=== PATIENT | male | born 1970 | race Caucasian/White ===

== ENCOUNTER 2019-01-09 10:36 | Inpatient (IN) | payer SELFPAY ==
--- NOTE | 2019-01-09 10:51 | ER Document Report ---
ED Medical Screen (RME) - General Chief Complaint: Abdominal Pain Stated Complaint: SEVERE ABDOMINAL PAIN Time Seen by Provider: 01/09/19 10:45 Mode of Arrival: Carried Information source: Patient Notes: 48-year-old male was in the ED for complaint of left lower quadrant abdominal pain. He states he woke up with some severe lower abdominal pain. He states he then tried to go to the bathroom realized he was very constipated. He took a Dulcolax on he states he still had some pain on Thursday but he was started to go to the bathroom. States this morning he thought he was a little more stool that he needed to pass and went to strain to pass passed some stool and then had a severe burning in the left lower quadrant. He has not had any nausea vomiting or any diarrhea. He states he does not smoke he quit he does drinks couple beer and a shot or 2 a night and uses marijuana. 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 I have greeted and performed a rapid initial assessment of this patient. A comprehensive ED assessment and evaluation of the patient, analysis of test results and completion of medical decision making process will be conducted by an additional ED providers. Physical Exam - Vital signs Vitals: Temp Pulse Resp BP Pulse Ox 97.4 F 77 20 166/97 H 100 01/09/19 10:40 01/09/19 10:40 01/09/19 10:40 01/09/19 10:40 01/09/19 10:40 Course - Vital Signs Vital signs: Temp Pulse Resp BP Pulse Ox 97.4 F 77 20 166/97 H 100 01/09/19 10:40 01/09/19 10:40 01/09/19 10:40 01/09/19 10:40 01/09/19 10:40
[2019-01-09 12:22] LABS: ABSOLUTE BASOPHILS # (AUTO) 0.1 10^3/uL (0.0-0.2); ABSOLUTE EOSINOPHILS # (AUTO) 0.1 10^3/uL (0.0-0.6); ABSOLUTE LYMPHOCYTES (AUTO) 1.1 10^3/uL (0.5-4.7); ABSOLUTE MONOCYTES (AUTO) 0.5 10^3/uL (0.1-1.4); ABSOLUTE NEUT (AUTO) 4.8 10^3/uL (1.7-8.2); BASOPHILS % (AUTO) 0.8 % (0-2); EOSINOPHILS % (AUTO) 1.1 % (0-6); HEMOGLOBIN 19.1 g/dL (13.5-17.0); LYMPHOCYTES % (AUTO) 17.1 % (13-45); MEAN CORPUSCULAR HEMOGLOBIN 34.1 pg (27.0-33.4); MEAN CORPUSCULAR HGB CONC 34.1 g/dL (32.0-36.0); MEAN CORPUSCULAR VOLUME 100 fl (80-97); MONOCYTES % (AUTO) 7.7 % (3-13); PLATELET COUNT 225 10^3/uL (150-450); RED BLOOD COUNT 5.58 10^6/uL (4.35-5.55); RED CELL DISTRIBUTION WIDTH 13.7 % (11.5-14.0); SEGMENTED NEUTROPHILS % (AUTO) 73.3 % (42-78); TOTAL CELLS COUNTED % (AUTO) 100 %; WHITE BLOOD COUNT 6.5 10^3/uL (4.0-10.5)
[2019-01-09 12:25] LABS: HEMATOCRIT 55.9 % (37.9-51.0)
[2019-01-09] MEDS ORDERED: KETOROLAC TROMETHAMINE INJ/PF 30 MG/1 ML SDV IV ONE (12:42)
--- NOTE | 2019-01-09 12:45 | ER Document Report ---
ED General - General Chief Complaint: Abdominal Pain Stated Complaint: SEVERE ABDOMINAL PAIN Time Seen by Provider: 01/09/19 10:45 Mode of Arrival: Carried Information source: Patient Notes: 48-year-old male presents emergency department with complaints of left lower quad abdominal pain. Patient reports that he is had an uncomfortable feeling of his left lower quad since . He is been drinking lots of water but had not ate anything until last night. He reports he ate a small sub-with some chips. He reports the pain this morning became severe. He was able to have a bowel movement this morning but reports he is constipated he has taken Dulcolax for that. Reports he was having a bowel movement and pushing and he felt a pop and then felt severe pain in his left lower quad. Denies fever nausea vomiting. Reports he has constipation every now and then. TRAVEL OUTSIDE OF THE [place] IN LAST 30 DAYS: No - HPI Onset: Other Onset/Duration: Persistent Quality of pain: Achy, Sharp Severity: Severe Associated symptoms: None Exacerbated by: Movement Relieved by: Denies Similar symptoms previously: No Recently seen / treated by doctor: No - Related Data Allergies/Adverse Reactions: No Known Allergies Allergy (Verified 01/09/19 10:45) Past Medical History - General Information source: Patient - Social History Smoking Status: Former Smoker Chew tobacco use (# tins/day): No Frequency of alcohol use: Heavy Drug Abuse: Marijuana Occupation: [employer] Family History: None Patient has suicidal ideation: No Patient has homicidal ideation: No - Medical History Medical History: Negative Surgical Hx: Negative Review of Systems - Review of Systems Notes: Review HPI for review of systems., All other systems negative Physical Exam - Vital signs Vitals: Temp Pulse Resp BP Pulse Ox 97.4 F 77 20 166/97 H 100 01/09/19 10:40 01/09/19 10:40 01/09/19 10:40 01/09/19 10:40 01/09/19 10:40 - Notes Notes: PHYSICAL EXAMINATION: GENERAL: Nontoxic looking, looks like he is uncomfortable HEAD: Atraumatic, normocephalic. EYES: Pupils equal round and reactive to light, extraocular movements intact, sclera anicteric, conjunctiva are normal. ENT: nares patent, oropharynx clear without exudates. Moist mucous membranes. NECK: Normal range of motion, supple without lymphadenopathy LUNGS: CTAB and equal. No wheezes rales or rhonchi. HEART: Regular rate and rhythm without murmurs ABDOMEN: Soft,LLQ TTP, Hypoactive BS. EXTREMITIES: Normal range of motion, no pitting edema. NEUROLOGICAL: Cranial nerves grossly intact. Normal sensory/motor exams. PSYCH: Normal mood, normal affect. SKIN: Warm, Dry, normal turgor, no rashes or lesions noted Course - Re-evaluation Re-evalutation: 01/09/19 13:55 48-year-old male presents to emergency department with complaints of left lower quad severe abdominal pain that started this morning. Reports the pain is been on and off since . He was only drinking water then he felt better Thursday night ate some chips and sub-. Reports he woke up this morning in severe pain. Reports he is has been having bowel movements although they have been hard stools. Patient reports he took some stool softener. 01/09/19 14:12 Dr. Good consulted 1352 regarding patient's perforated diverticulitis. He was in the emergency department at 1410. Assessing patient. - Vital Signs Vital signs: Temp Pulse Resp BP Pulse Ox 97.9 F 84 16 145/75 H 100 01/09/19 15:00 01/09/19 15:00 01/09/19 15:00 01/09/19 15:00 01/09/19 15:00 - Laboratory Result Diagrams: 01/09/19 11:10 01/09/19 11:10 Laboratory results interpreted by me: 01/09/19 01/09/19 01/09/19 11:10 11:10 14:01 RBC 5.58 H Hgb 19.1 H Hct 55.9 H MCV 100 H MCH 34.1 H Sodium 136.8 L Glucose 145 H Urine Ketones TRACE H Urine Blood SMALL H - Diagnostic Test Radiology reviewed: Image reviewed, Reports reviewed - Consults dr good Time consulted: 13:55 Reason for consultation: 01/09/19 14:12 PERFORATED DIVERTICULITIS Consulted provider: will come to ER Discharge - Discharge Clinical Impression: Acute sigmoid diverticulitis with perfor Condition: Stable Disposition: ADMITTED INPATIENT Admitting Provider: Surgicalist Unit Admitted: Medical Floor
[2019-01-09 12:56] LABS: ALBUMIN 4.2 g/dL (3.5-5.0); ALKALINE PHOSPHATASE 72 U/L (38-126); ANION GAP 11 (5-19); ASPARTATE AMINO TRANSFERASE 42 U/L (17-59); BILIRUBIN,DIRECT 0.3 mg/dL (0.0-0.4); BILIRUBIN,TOTAL 0.7 mg/dL (0.2-1.3); BLOOD UREA NITROGEN 13 mg/dL (7-20); CALCIUM 9.7 mg/dL (8.4-10.2); CARBON DIOXIDE 25 mmol/L (22-30); CHLORIDE 101 mmol/L (98-107); GLUCOSE 145 mg/dL (75-110); POTASSIUM 4.1 mmol/L (3.6-5.0); TOTAL PROTEIN 7.4 g/dL (6.3-8.2)
[2019-01-09] MEDS ORDERED: NORMAL SALINE 1000 ML 1,000 ML IV ONE (13:22)
--- NOTE | 2019-01-09 13:34 | RADIOLOGY REPORT (SQ) ---
EXAM DESCRIPTION: CT ABD/PELVIS WITH IV ONLY COMPLETED DATE/TIME: 01/09/2019 1:18 pm REASON FOR STUDY: llq severe abdominal pain COMPARISON: None. TECHNIQUE: CT scan of the abdomen and pelvis performed using helical scanning technique with dynamic intravenous contrast injection. No oral contrast. Images reviewed with lung, soft tissue, and bone windows. Reconstructed coronal and sagittal MPR images reviewed. Delayed images for evaluation of the urinary system also acquired. All images stored on PACS. All CT scanners at this facility use dose modulation, iterative reconstruction, and/or weight based d osing when appropriate to reduce radiation dose to as low as reasonably achievable (ALARA). [facility]: Dose Right [facility]: CareDose [facility]: Dose Right [facility]: Teradose 4D [facility]: Biodesy CONTRAST TYPE AND DOSE: contrast/concentration: Isovue 350.00 mg/ml; Total Contrast Delivered: 86.0 ml; Total Saline Delivered: 63.0 ml RENAL FUNCTION: None required. The patient is less than 50 years old. RADIATION DOSE: CT Rad equipment meets quality standard of care and radiation dose reduction techniq ues were employed. CTDIvol: 6.1 - 8.4 mGy. DLP: 755 mGy-cm.. LIMITATIONS: None. FINDINGS: LOWER CHEST: No significant findings. No nodules or infiltrates. LIVER: Normal size. No masses. No dilated ducts. SPLEEN: Normal size. No focal lesions. PANCREAS: No masses. No significant calcifications. No adjacent inflammation or peripancreatic fluid collections. Pancreatic duct not dilated. GALLBLADDER: No identified stones by CT criteria. No inflammatory changes to suggest cholecystitis. ADRENAL GLANDS: No significant masses or asymmetry. RIGHT KIDNEY AND URETER: No solid masses. No significant calcifications. No hydronephrosis or hyd roureter. LEFT KIDNEY AND URETER: No solid masses. No significant calcifications. No hydronephrosis or hydr oureter. AORTA AND VESSELS: No aneurysm. No dissection. Renal arteries, SMA, celiac without stenosis. RETROPERITONEUM: No retroperitoneal adenopathy, hemorrhage or masses. BOWEL AND PERITONEAL CAVITY: Mesenteric inflammation proximal sigmoid colon. There are several extra luminal bubbles gas. No organized gas fluid collection. No ascites or free air. APPENDIX: Normal. PELVIS: No mass. No free fluid. Normal bladder. ABDOMINAL WALL: No masses. No hernias. BONES: No significant or acute findings. OTHER: No other significant finding. IMPRESSION: Perforated diverticulitis. TECHNICAL DOCUMENTATION: JOB ID: [id number] Quality ID # [id number]: Final reports with documentation of one or more dose reduction techniques (e.g., Au tomated exposure control, adjustment of the mA and/or kV according to patient size, use of iterative reconstruction technique) 2010 [employer]- All Rights Reserved Reading location - IP/workstation name: [email or web address] [id number]
[2019-01-09] MEDS ORDERED: PIPERACILLIN/TAZOBACTAM 3.375 GM VIAL IV ONE ×2 (14:00→23:49)
[2019-01-09 14:24] LABS: APPEARANCE,URINE CLEAR; BILIRUBIN,URINE NEGATIVE (NEGATIVE); COLOR,URINE YELLOW; GLUCOSE, URINE NEGATIVE (NEGATIVE); KETONES,URINE TRACE mg/dL (NEGATIVE); PROTEIN,URINE NEGATIVE (NEGATIVE); URINE SPECIFIC GRAVITY 1.044; UROBILINOGEN,URINE NEGATIVE mg/dL (<2.0)
--- NOTE | 2019-01-09 14:29 | PDOC H&P ---
History of Present Illness Admission Date/PCP: 01/09/19 Patient complains of: abdominal pains History of Present Illness: STEFAN DAO is a 48 year old male started c/o LLQ pains 3 days ago associated with constipation. He took a Dulcolax tablets later that night with the small amount of bowel movement. The pain is persisted and this morning complain of more severe pains with burning sensations with nausea. Has been complaining of off and on fever and chills for the past 3days but is still able to work until 2 days ago. Social History Smoking Status: Former Smoker Electronic Cigarette use?: No Drugs: Marijuana Family History Parental Family History Reviewed: Yes Children Family History Reviewed: No Sibling(s) Family History Reviewed.: No Medication/Allergy Allergies/Adverse Reactions: No Known Allergies Allergy (Verified 01/09/19 10:45) Review of Systems Constitutional: PRESENT: as per HPI Cardiovascular: PRESENT: other - No chest pains nor cough Gastrointestinal: PRESENT: abdominal pain, constipation, nausea Psychiatric: PRESENT: other - Claims he is preparing to be transgender Physical Exam Vital Signs: Temp Pulse Resp BP Pulse Ox 97.4 F 77 20 166/97 H 100 01/09/19 10:40 01/09/19 10:40 01/09/19 10:40 01/09/19 10:40 01/09/19 10:40 Intake & Output 01/08/19 01/09/19 01/10/19 06:59 06:59 06:59 Weight 75.7 kg General appearance: PRESENT: mild distress Head exam: PRESENT: atraumatic Eye exam: PRESENT: conjunctiva pink Mouth exam: PRESENT: moist Neck exam: PRESENT: full ROM Respiratory exam: PRESENT: clear to auscultation derrick Cardiovascular exam: PRESENT: RRR Pulses: PRESENT: normal radial pulses Vascular exam: PRESENT: normal capillary refill GI/Abdominal exam: PRESENT: soft, tenderness - Left lower quadrant Rectal exam: PRESENT: deferred Musculoskeletal exam: PRESENT: full ROM Neurological exam: PRESENT: alert, oriented to person, oriented to place, oriented to time, oriented to situation Psychiatric exam: PRESENT: appropriate affect Skin exam: PRESENT: normal color, warm Results Laboratory Results: 01/09/19 11:10 01/09/19 11:10 01/09/19 01/09/19 11:10 11:10 WBC 6.5 RBC 5.58 H Hgb 19.1 H Hct 55.9 H MCV 100 H MCH 34.1 H MCHC 34.1 RDW 13.7 Plt Count 225 Seg Neutrophils % 73.3 Sodium 136.8 L Potassium 4.1 Chloride 101 Carbon Dioxide 25 Anion Gap 11 BUN 13 Creatinine 0.89 Est GFR ( Amer) > 60 Glucose 145 H Calcium 9.7 Total Bilirubin 0.7 AST 42 Alkaline Phosphatase 72 Total Protein 7.4 Albumin 4.2 Impressions: Abdomen/Pelvis CT 01/09/19 12:42 IMPRESSION: Perforated diverticulitis. Assessment & Plan - Diagnosis (1) Acute sigmoid diverticulitis with perfor Is this a current diagnosis for this admission?: Yes - Time Time Spent: 30 to 50 Minutes - Inpatient Certification Medical Necessity: Need For IV Fluids, Need for Pain Control, Need for IV Antibiotics - Plan Summary Plan Summary: This is a 48-year-old male with complaints of left lower quadrant pains with constipation and. Nausea and off and on fever started about 3 days ago. Took some laxatives 3 days ago with some results. This morning pains became worse this time with associated burning sensation along the left lower quadrant and pelvis areas. His abdomen is soft with tenderness on the left lower quadrant on deep palpation. No rebound. His white count is normal. CT scan of the abdomen showed a sigmoid diverticulitis with perforation but no free air. Plans: Keep n.p.o. and start hydration Start IV antibiotics Patient does not need any emergency operation at this time but will monitor him closely. We will repeat the blood work in the morning.
[2019-01-09] MEDS ORDERED: PIPERACILLIN/TAZOBACTAM 3.375 GM VIAL IV SCH (14:45)
[2019-01-09] MEDS ORDERED: INFLUENZA QUAD (6MOS+) 2019-20 VAC 0.5 ML SYR IM ONE (16:00)
[2019-01-09] MEDS: ENOXAPARIN SODIUM INJ 30 MG/0.3 ML DISP.SYRIN SUBCUT SCH (16:25)
[2019-01-09] MEDS ORDERED: KETOROLAC TROMETHAMINE INJ/PF 30 MG/1 ML SDV IV PRN (22:01)
[2019-01-09] MEDS: DEXTROSE 5%-LACTATED RINGERS 1,000 ML IV PRN (23:13)
[2019-01-09] MEDS ORDERED: PIPERACILLIN/TAZOBACTAM 3.375 GM VIAL IV PRN (23:32)
[2019-01-10] MEDS: PIPERACILLIN SODIUM/TAZOBACTAM 3.375 GM in NORMAL SALINE 100 ML IV SCH ×6 (05:34→23:00)
[2019-01-10 06:09] LABS: ABSOLUTE LYMPHOCYTES (AUTO) 0.9 10^3/uL (0.5-4.7); ABSOLUTE MONOCYTES (AUTO) 1.4 10^3/uL (0.1-1.4); BASOPHILS % (AUTO) 0.1 % (0-2); EOSINOPHILS % (AUTO) 0.1 % (0-6); HEMATOCRIT 48.3 % (37.9-51.0); LYMPHOCYTES % (AUTO) 7.3 % (13-45); MEAN CORPUSCULAR HEMOGLOBIN 34.3 pg (27.0-33.4); MEAN CORPUSCULAR HGB CONC 34.6 g/dL (32.0-36.0); MEAN CORPUSCULAR VOLUME 99 fl (80-97); MONOCYTES % (AUTO) 11.4 % (3-13); PLATELET COUNT 207 10^3/uL (150-450); RED BLOOD COUNT 4.88 10^6/uL (4.35-5.55); RED CELL DISTRIBUTION WIDTH 13.6 % (11.5-14.0); SEGMENTED NEUTROPHILS % (AUTO) 81.1 % (42-78); TOTAL CELLS COUNTED % (AUTO) 100 %; WHITE BLOOD COUNT 12.4 10^3/uL (4.0-10.5)
[2019-01-10] MEDS: DEXTROSE 5%-LACTATED RINGERS 1,000 ML IV PRN ×3 (06:12→20:22)
[2019-01-10 06:16] LABS: HEMOGLOBIN 16.7 g/dL (13.5-17.0)
[2019-01-10 06:26] LABS: ALBUMIN 3.2 g/dL (3.5-5.0); ALKALINE PHOSPHATASE 50 U/L (38-126); ANION GAP 10 (5-19); ASPARTATE AMINO TRANSFERASE 20 U/L (17-59); BILIRUBIN,DIRECT 0.2 mg/dL (0.0-0.4); BILIRUBIN,TOTAL 1.2 mg/dL (0.2-1.3); BLOOD UREA NITROGEN 7 mg/dL (7-20); CALCIUM 8.9 mg/dL (8.4-10.2); CARBON DIOXIDE 22 mmol/L (22-30); CHLORIDE 106 mmol/L (98-107); GLUCOSE 130 mg/dL (75-110); POTASSIUM 3.6 mmol/L (3.6-5.0); TOTAL PROTEIN 5.8 g/dL (6.3-8.2)
[2019-01-10] MEDS: ENOXAPARIN SODIUM INJ 30 MG/0.3 ML DISP.SYRIN SUBCUT SCH (09:20)
[2019-01-10] MEDS ORDERED: KETOROLAC TROMETHAMINE 10 MG TABLET PO PRN (10:10)
--- NOTE | 2019-01-10 10:10 | PDOC PROGRESS REPORT ---
Subjective Progress Note for:: 01/10/19 Subjective:: Patient says he feels better, passing his water; having some pelvic pain with straining. Reason For Visit: ACUTE SIGMOD DIVERTICULITIS WITH PERFORATION Physical Exam Vital Signs: Temp Pulse Resp BP Pulse Ox 98.6 F 84 20 138/73 H 96 01/10/19 00:15 01/10/19 07:44 01/10/19 07:44 01/10/19 07:44 01/10/19 07:44 Intake & Output 01/09/19 01/10/19 01/11/19 06:59 06:59 06:59 Intake Total 2200 Output Total 400 Balance 1800 Weight 80.2 kg General appearance: PRESENT: no acute distress, other - Patient hiking in the hallways with IV pole GI/Abdominal exam: PRESENT: other - Abdomen is soft minimally tender left lower quadrant. No guarding no peritoneal signs. Minimal distention. Results Laboratory Results: 01/10/19 05:28 01/10/19 05:28 01/09/19 01/09/19 01/09/19 11:10 11:10 14:01 WBC 6.5 RBC 5.58 H Hgb 19.1 H Hct 55.9 H MCV 100 H MCH 34.1 H MCHC 34.1 RDW 13.7 Plt Count 225 Seg Neutrophils % 73.3 Sodium 136.8 L Potassium 4.1 Chloride 101 Carbon Dioxide 25 Anion Gap 11 BUN 13 Creatinine 0.89 Est GFR ( Amer) > 60 Glucose 145 H Calcium 9.7 Total Bilirubin 0.7 AST 42 Alkaline Phosphatase 72 Total Protein 7.4 Albumin 4.2 Urine Color YELLOW Urine Appearance CLEAR Urine pH 5.0 Ur Specific [place] 1.044 Urine Protein NEGATIVE Urine Glucose (UA) NEGATIVE Urine Ketones TRACE H Urine Blood SMALL H Urine RBC (Auto) 1 01/10/19 01/10/19 05:28 05:28 WBC 12.4 H RBC 4.88 Hgb 16.7 D Hct 48.3 MCV 99 H MCH 34.3 H MCHC 34.6 RDW 13.6 Plt Count 207 Seg Neutrophils % 81.1 H Sodium 137.9 Potassium 3.6 Chloride 106 Carbon Dioxide 22 Anion Gap 10 BUN 7 Creatinine 0.81 Est GFR ( Amer) > 60 Glucose 130 H Calcium 8.9 Total Bilirubin 1.2 AST 20 Alkaline Phosphatase 50 Total Protein 5.8 L Albumin 3.2 L Urine Color Urine Appearance Urine pH Ur Specific [place] Urine Protein Urine Glucose (UA) Urine Ketones Urine Blood Urine RBC (Auto) Impressions: Abdomen/Pelvis CT 01/09/19 12:42 IMPRESSION: Perforated diverticulitis. Assessment & Plan - Diagnosis (1) Acute sigmoid diverticulitis with perfor Is this a current diagnosis for this admission?: Yes Plan: Impression: Hospital day 2 for patient with contained microperforation pericolonic stranding of the sigmoid colon secondary to diverticular disease, medically improved with IV antibiotics and bowel rest. No indication for surgical intervention today Recommendations: 1. Continue intravenous antibiotics 2. We will start clear liquids 3. We will start patient on Colace 4. We will wean off narcotics and utilize nonnarcotic analgesia - Time Time Spent with patient: Less than 15 minutes
[2019-01-10] MEDS: DOCUSATE SODIUM 100 MG CAPSULE PO SCH (18:32)
[2019-01-11] MEDS: DEXTROSE 5%-LACTATED RINGERS 1,000 ML IV PRN ×2 (03:48→11:00)
[2019-01-11] MEDS: PIPERACILLIN SODIUM/TAZOBACTAM 3.375 GM in NORMAL SALINE 100 ML IV SCH ×2 (05:56→12:14)
[2019-01-11] MEDS: DOCUSATE SODIUM 100 MG CAPSULE PO SCH (09:38)
[2019-01-11] MEDS: ENOXAPARIN SODIUM INJ 30 MG/0.3 ML DISP.SYRIN SUBCUT SCH (10:56)
--- NOTE | 2019-01-11 15:21 | PDOC DISCHARGE SUMMARY ---
General - Admit/Disc Date/PCP Admission Date/Primary Care Provider: 01/09/19 15:05 Discharge Date: 01/11/19 - Discharge Diagnosis Final Diagnosis: Sigmoid diverticulitis, uncomplicated - Assessment Summary: This is a 48-year-old male who presents with uncomplicated diverticulitis. The patient had inflammatory stranding around the sigmoid colon on CT scan. He was admitted to hospital and started on intravenous antibiotics. He very quickly defervesced. He began tolerating a diet, having normal bowel movements, and ambulating in the hallway. He remained afebrile. By 01/11/2019 it was felt that the patient had reached maximal hospital benefit, and was fit for discharge. - Additional Information Resuscitation Status: Full Code Discharge Diet: As Tolerated Discharge Activity: Balance Activity w/Rest Referrals: [facility] [Outside] - 01/19/19 3:30 pm Home Medications: No Home Medications 01/10/19 Additional Information: Discharge home. Diet as tolerated. Activity: Nonstrenuous. Follow-up in 7 to 10 days at [facility]. Augmentin 875 mg p.o. twice daily. Flagyl 500 mg p.o. 3 times daily. [place] 10/325 mg p.o. every 6 hours as needed for pain. Okay to shower. History of Present Illiness History of Present Illness: STEFAN DAO is a 48 year old male Physical Exam Vital Signs: Temp Pulse Resp BP Pulse Ox 98.1 F 76 16 145/88 H 98 01/11/19 11:08 01/11/19 11:08 01/11/19 11:08 01/11/19 11:08 01/11/19 11:08 Intake & Output 01/10/19 01/11/19 01/12/19 06:59 06:59 06:59 Intake Total 2200 4040 1610 Output Total 400 800 Balance 1800 3240 1610 Weight 80.2 kg 78.9 kg Results Laboratory Results: WBC 12.4 10^3/uL (4.0-10.5) H 01/10/19 05:28 RBC 4.88 10^6/uL (4.35-5.55) 01/10/19 05:28 Hgb 16.7 g/dL (13.5-17.0) D 01/10/19 05:28 Hct 48.3 % (37.9-51.0) 01/10/19 05:28 MCV 99 fl (80-97) H 01/10/19 05:28 MCH 34.3 pg (27.0-33.4) H 01/10/19 05:28 MCHC 34.6 g/dL (32.0-36.0) 01/10/19 05:28 RDW 13.6 % (11.5-14.0) 01/10/19 05:28 Plt Count 207 10^3/uL (150-450) 01/10/19 05:28 Lymph % (Auto) 7.3 % (13-45) L 01/10/19 05:28 [place] % (Auto) 11.4 % (3-13) 01/10/19 05:28 Eos % (Auto) 0.1 % (0-6) 01/10/19 05:28 Baso % (Auto) 0.1 % (0-2) 01/10/19 05:28 Absolute Neuts (auto) 10.0 10^3/uL (1.7-8.2) H 01/10/19 05:28 Absolute Lymphs (auto) 0.9 10^3/uL (0.5-4.7) 01/10/19 05:28 Absolute Monos (auto) 1.4 10^3/uL (0.1-1.4) 01/10/19 05:28 Absolute Eos (auto) 0.0 10^3/uL (0.0-0.6) 01/10/19 05:28 Absolute Basos (auto) 0.0 10^3/uL (0.0-0.2) 01/10/19 05:28 Seg Neutrophils % 81.1 % (42-78) H 01/10/19 05:28 Sodium 137.9 mmol/L (137-145) 01/10/19 05:28 Potassium 3.6 mmol/L (3.6-5.0) 01/10/19 05:28 Chloride 106 mmol/L (98-107) 01/10/19 05:28 Carbon Dioxide 22 mmol/L (22-30) 01/10/19 05:28 Anion Gap 10 (5-19) 01/10/19 05:28 BUN 7 mg/dL (7-20) 01/10/19 05:28 Creatinine 0.81 mg/dL (0.52-1.25) 01/10/19 05:28 Est GFR ( Amer) > 60 (>60) 01/10/19 05:28 Est GFR (MDRD) Non-Af > 60 (>60) 01/10/19 05:28 Glucose 130 mg/dL (75-110) H 01/10/19 05:28 Calcium 8.9 mg/dL (8.4-10.2) 01/10/19 05:28 Total Bilirubin 1.2 mg/dL (0.2-1.3) 01/10/19 05:28 Direct Bilirubin 0.2 mg/dL (0.0-0.4) 01/10/19 05:28 Neonat Total Bilirubin Not Reportable 01/10/19 05:28 Neonat Direct Bilirubin Not Reportable 01/10/19 05:28 Neonat Indirect Bili Not Reportable 01/10/19 05:28 AST 20 U/L (17-59) 01/10/19 05:28 ALT 21 U/L (<50) 01/10/19 05:28 Alkaline Phosphatase 50 U/L (38-126) 01/10/19 05:28 Total Protein 5.8 g/dL (6.3-8.2) L 01/10/19 05:28 Albumin 3.2 g/dL (3.5-5.0) L 01/10/19 05:28 Urine Color YELLOW 01/09/19 14:01 Urine Appearance CLEAR 01/09/19 14:01 Urine pH 5.0 (5.0-9.0) 01/09/19 14:01 Ur Specific [place] 1.044 01/09/19 14:01 Urine Protein NEGATIVE mg/dL (NEGATIVE) 01/09/19 14:01 Urine Glucose (UA) NEGATIVE mg/dL (NEGATIVE) 01/09/19 14:01 Urine Ketones TRACE mg/dL (NEGATIVE) H 01/09/19 14:01 Urine Blood SMALL (NEGATIVE) H 01/09/19 14:01 Urine Nitrite (Reflex) NEGATIVE (NEGATIVE) 01/09/19 14:01 Urine Bilirubin NEGATIVE (NEGATIVE) 01/09/19 14:01 Urine Urobilinogen NEGATIVE mg/dL (<2.0) 01/09/19 14:01 Leukocyte Esterase Rfl NEGATIVE (NEGATIVE) 01/09/19 14:01 Urine RBC (Auto) 1 /HPF 01/09/19 14:01 Urine WBC (Reflex) < 1 /HPF 01/09/19 14:01 Urine Mucus (Auto) OCC /LPF 01/09/19 14:01 Urine Ascorbic Acid NEGATIVE (NEGATIVE) 01/09/19 14:01 Impressions: Abdomen/Pelvis CT 01/09/19 12:42 IMPRESSION: Perforated diverticulitis.
[2019-01-11 15:48] VITALS: BP 162/97
== END 2019-01-11 16:15 | disposition home or self-care (01) | DRG 392 ==
LOC: ER 10:36 → EH 15:05 → 5 15:39
PROVIDERS: ADMIT Surgery; ATTEND Surgery
DX: K57.20 Diverticulitis of large intestine with perforation and abscess without bleeding (principal); K59.00 Constipation, unspecified; F12.10 Cannabis abuse, uncomplicated; Z87.891 Personal history of nicotine dependence
CPT/HCPCS: 36415; 74177; 80053; 81001; 85025; 96361; 96365; 96375; 99285; J1650; J1885; J2543; J7030; J7050; J7121